=== PATIENT | female | born 1955 | race Caucasian/White ===

== ENCOUNTER 2017-07-09 15:49 | Emergency (ER) | payer MEDICAID | END 2017-07-09 20:37 | disposition home or self-care (01) | LOC: FTE 15:49 | DX: M25.512 Pain in left shoulder (principal); I10 Essential (primary) hypertension; Z85.3 Personal history of malignant neoplasm of breast | CPT/HCPCS: 73030; 73050; 99283-25 ==

== ENCOUNTER 2017-08-31 09:27 | Day surgery (SDC) | payer MEDICAID ==
[2017-08-31] MEDS ORDERED: LIDOCAINE 100 MG SYRINGE (11:10)
[2017-08-31] MEDS ORDERED: PROPOFOL 60 ML (11:10)
== END 2017-08-31 12:54 | disposition home or self-care (01) ==
LOC: GIL 09:27
DX: Z12.11 Encounter for screening for malignant neoplasm of colon (principal); K29.30 Chronic superficial gastritis without bleeding; K22.2 Esophageal obstruction; K44.9 Diaphragmatic hernia without obstruction or gangrene; K31.7 Polyp of stomach and duodenum; K20.9 Esophagitis, unspecified; K64.8 Other hemorrhoids
CPT/HCPCS: 43239; 88305; 88312

== ENCOUNTER 2018-08-26 13:07 | Emergency (ER) | payer MEDICAID ==
[2018-08-26] MEDS: FLUORESCEIN STRIP BOTH EYES (14:01)
[2018-08-26] MEDS: TETRACAINE 0.5% 4 ML OPH BOTH EYES (14:01)
== END 2018-08-26 16:19 | disposition home or self-care (01) ==
LOC: FTE 13:07
DX: T54.91XA Toxic effect of unspecified corrosive substance, accidental (unintentional), initial encounter (principal); I10 Essential (primary) hypertension; Z85.3 Personal history of malignant neoplasm of breast
CPT/HCPCS: 99283; Z7502

== ENCOUNTER 2019-04-17 08:33 | Day surgery (SDC) | payer OTHER ==
[2019-04-17] MEDS ORDERED: PROPOFOL 40 ML (09:25)
[2019-04-17] MEDS ORDERED: LIDOCAINE 2% (SDV) 5 ML INJ ×2 (09:25→10:27)
[2019-04-17] MEDS ORDERED: PROPOFOL 20 ML (10:27)
== END 2019-04-17 13:59 | disposition home or self-care (01) ==
LOC: GIL 08:33
DX: K29.30 Chronic superficial gastritis without bleeding (principal); K22.9 Disease of esophagus, unspecified; K31.9 Disease of stomach and duodenum, unspecified
CPT/HCPCS: 43239; 88305; 88312; 88313